=== PATIENT | female | born 1965 | race Caucasian/White ===

== ENCOUNTER 2021-11-08 10:03 | Emergency (ER) | payer BC, SELFPAY ==
[~2021-11-08] VITALS: Ht 160 cm; Wt 104.3 kg
[2021-11-08 10:18] VITALS: BP 132/70
[2021-11-08] MEDS ORDERED: SOTROVIMAB 500 MG in NACL 0.9% 50 ML IV ONE (12:00)
--- NOTE | 2021-11-08 12:33 | NUR ---
TO ER BED 10
--- NOTE | 2021-11-08 12:34 | NUR ---
PT AMBULATED TO ER BED 10 WITH STEADY GAIT
[2021-11-08] MEDS ORDERED: SOTROVIMAB 500 MG/8 ML VIAL IV ONE (12:53)
--- NOTE | 2021-11-08 13:00 | NUR ---
Patient appears to be resting comfortably in bed. Vital Signs within normal limits. Respirations even and unlabored.
--- NOTE | 2021-11-08 13:26 | NUR ---
56 Y/O FEMALE BIB SELF C/O SOB, COVID+ SINCE FRIDAY. WITH COUGH, SORE THROAT. CURRENT PAIN IS 8/10 PAIN AND ONLY FELT IN THE CHEST REGION WHEN COUGHING. BREATH SOUNDS CLEAR AND PT CURRENTLY SATING AT 97% ON RA. PT A&OX4, SKIN DRY AND INTACT. MEDHX: THYROID ALLERGIES: SULFA, CIPRO, TETRACYCLIN, MACROBID, KEFLEX, PAXIL
[2021-11-08] MEDS ORDERED: ACET-10509 PO (13:50)
[2021-11-08] MEDS ORDERED: ALBU0.0912 INH (13:50)
[2021-11-08 14:19] VITALS: BP 138/75
--- NOTE | 2021-11-08 14:20 | NUR ---
Patient discharged with v/s stable. Written and verbal after care instructions given and explained. Patient alert, oriented and verbalized understanding of instructions. Ambulatory with steady gait. All questions addressed prior to discharge. ID band removed. Patient advised to follow up with PMD. RX OF TYLENOL AND ALBUTEROL given. Patient educated on indication of medication including possible reaction and side effects. Opportunity to ask questions provided and answered.
== END 2021-11-08 14:19 | disposition home or self-care (01) ==
LOC: MED 10:03
DX: U07.1 COVID-19 (principal); E07.9 Disorder of thyroid, unspecified; Z79.899 Other long term (current) drug therapy; Z88.1 Allergy status to other antibiotic agents; Z88.2 Allergy status to sulfonamides; Z88.8 Allergy status to other drugs, medicaments and biological substances
CPT/HCPCS: 71045; 96365; 99284